=== PATIENT | female | born 1990 | race African-American/Black ===

== ENCOUNTER 2017-10-06 11:16 | Emergency (ER) | payer BC ==
[~2017-10-06] VITALS: Ht 149.9 cm; Wt 56.7 kg
[2017-10-06] MEDS ORDERED: KETOROLAC TROMETHAMINE 30 MG/ML VIAL IM STA (12:16)
[2017-10-06 13:56] VITALS: BP 110/70
== END 2017-10-06 12:30 | disposition home or self-care (01) ==
LOC: FSED 11:16
DX: M54.2 Cervicalgia (principal); M54.6 Pain in thoracic spine; M62.830 Muscle spasm of back
CPT/HCPCS: 99282; J1885